=== PATIENT | male | born 1945 | race Caucasian/White ===

== ENCOUNTER 2022-12-20 08:19 | Emergency (ER) | payer MEDICARE | END 2022-12-20 09:35 | disposition home or self-care (01) | LOC: LB.ED 08:19 | DX: S01.01XA Laceration without foreign body of scalp, initial encounter (principal); E78.00 Pure hypercholesterolemia, unspecified; I10 Essential (primary) hypertension; J44.9 Chronic obstructive pulmonary disease, unspecified; E11.9 Type 2 diabetes mellitus without complications; Z87.891 Personal history of nicotine dependence; W00.0XXA Fall on same level due to ice and snow, initial encounter | CPT/HCPCS: 36415; 70450; 80048; 85025; 85610; 99284 ==